=== PATIENT | male | born 1960 | race African-American/Black ===

== ENCOUNTER 2018-05-21 02:28 | Inpatient (IN) | payer BC ==
[2018-05-21] VITALS (8 sets, daily range): BP systolic 108–129; BP diastolic 69–87
[~2018-05-21] VITALS: Ht 180.3 cm; Wt 96.2 kg
[2018-05-21] MEDS ORDERED: FUROSEMIDE 40MG/4ML VIAL IV ONE (02:45)
[2018-05-21] MEDS ORDERED: CALCIUM GLUCONATE 100MG/ML 10ML VIAL IV ONE (03:30)
[2018-05-21 03:48] LABS: CHLORIDE 106 mEq/L (98-107)
[2018-05-21 03:51] LABS: BASOPHILS % 0.4 % (0.0-2.0); EOSINOPHILS % 1.6 % (0.0-5.0); HEMATOCRIT. 28.1 % (42.0-52.0); HEMOGLOBIN. 9.5 g/dL (14.0-18.0); LYMPHOCYTES % 10.8 % (20.0-50.0); MEAN CORPUSCULAR VOLUME 82.7 fL (80.0-94.0); MEAN PLATELET VOLUME 7.5 fl (7.4-10.4); MONOCYTES % 6.1 % (2.0-8.0); NEUTROPHILS % 81.1 % (40.0-76.0); PLATELET 291 x1000/uL (130-400); RED BLOOD CELL COUNT 3.39 mill/uL (4.7-6.1); RED CELL DISTRIBUTION WIDTH 17.7 % (11.6-14.6)
[2018-05-21 04:23] LABS: PARTIAL THROMBOPLASTIN TIME 21.9 sec (23.4-31.0); PROTHROMBIN TIME 10.5 sec (9.1-11.1)
[2018-05-21] MEDS ORDERED: CALCIUM GLUCONATE 1,000 MG in DEXTROSE 5% WATER 50 ML IV SCH (04:30)
[2018-05-21] MEDS ORDERED: HYDROCODONE/ACETAMINOPHEN 5/325MG TABLET PO PRN (10:00)
[2018-05-21] MEDS ORDERED: MAGNESIUM/ALUMINUM HYDROXIDE/SIMETHICONE 30ML UDC PO PRN (10:00)
[2018-05-21] MEDS ORDERED: ONDANSETRON HCL 4MG/2ML INJ IV PRN (10:00)
[2018-05-21] MEDS ORDERED: CLONIDINE 0.1MG TABLET PO PRN (10:00)
[2018-05-21] MEDS ORDERED: ACETAMINOPHEN 325MG TABLET PO PRN (10:00)
[2018-05-21] MEDS ORDERED: NA PHOS,M-B/NA PHOS,DI-BA ENEMA 118ML PR PRN (10:00)
[2018-05-21] MEDS ORDERED: IPRATROPIUM/ALBUTEROL 0.5-3(2.5)MG/3ML NEB INH PRN (10:00)
[2018-05-21] MEDS ORDERED: DIPHENHYDRAMINE 50MG/ML VIAL IV PRN (10:00)
[2018-05-21] MEDS ORDERED: ACETAMINOPHEN 650MG SUPP PR PRN (10:00)
[2018-05-21 10:43] LABS: BG BILEVEL POS AIRWAY PRESSURE ST=15/5; BG CARBOXYHEMOGLOBIN 0.3 % (0.5-1.5); BG DEOXYHEMOGLOBIN 1.2 % (0.0-5.0); BG FRACTION INSPIRED OXYGEN 60; BG HCO3 ACT 25.7 mmol/L (22.0-26.0); BG METHEMOGLOBIN 0.5 % (0.0-1.5); BG OXYGEN SATURATION 98.8 % (92.0-98.5); BG PCO2 36.4 mmHg (35.0-45.0); BG PH 7.466 (7.350-7.450); BG PO2 208.2 mmHg (75.0-100.0); BG PRESSURE SUPPORT 10; BG SAMPLE SITE LEFT RADIAL; BG TOTAL HEMOGLOBIN 9.5 g/dL (12.0-18.0); BG VENT MODE MASK - BIPAP; BG VENT RATE 20 set
[2018-05-21] MEDS ORDERED: ENOXAPARIN 30MG/0.3ML SYR SUBCUT SCH (11:00)
[2018-05-21] MEDS ORDERED: CARV6.2548 MT (11:01)
[2018-05-21] MEDS ORDERED: CHOL400T28 MT (11:01)
[2018-05-21] MEDS ORDERED: ASCO100T12 MT (11:01)
[2018-05-21] MEDS ORDERED: MINO10TA MT (11:01)
[2018-05-21] MEDS ORDERED: FERR140T MT (11:01)
[2018-05-21] MEDS ORDERED: FURO20TA4 MT (11:01)
[2018-05-21] MEDS: ASPIRIN 81MG TABLET PO SCH (11:41)
[2018-05-21 12:39] LABS: CREATINE KINASE MB FRACTION 2.4 ng/mL (0.5-3.6)
[2018-05-21 15:26] LABS: CLARITY URINE CLEAR (CLEAR); COLOR URINE YELLOW (YELLOW); KETONES URINE NEGATIVE (NEGATIVE); LEUKOCYTE ESTERASE URINE NEGATIVE (NEGATIVE); NITRITE URINE NEGATIVE (NEGATIVE); OCCULT BLOOD URINE NEGATIVE (NEGATIVE); PROTEIN URINE NEGATIVE (NEGATIVE); SPECIFIC GRAVITY URINE 1.008 (1.005-1.030); UROBILINOGEN URINE 0.2 E.U./dL (0.2-1.0)
[2018-05-21 15:34] LABS: CANNABINOID URINE SCREEN NEGATIVE (NEGATIVE); PHENCYCLIDINE URINE SCREEN NEGATIVE (NEGATIVE)
[2018-05-21 15:35] LABS: *BARBITURATES SCREEN URINE NEGATIVE (NEGATIVE)
[2018-05-21 15:36] LABS: *COCAINE SCREEN URINE NEGATIVE (NEGATIVE)
[2018-05-21 15:37] LABS: METHADONE URINE SCREEN NEGATIVE (NEGATIVE)
[2018-05-21 15:39] LABS: OPIATES URINE SCREEN NEGATIVE (NEGATIVE)
[2018-05-21 15:41] LABS: *AMPHETAMINES SCREEN URINE NEGATIVE (NEGATIVE); *BENZODIAZEPINES SCREEN URINE NEGATIVE (NEGATIVE)
[2018-05-21 18:07] LABS: BG CARBOXYHEMOGLOBIN 0.3 % (0.5-1.5); BG DEOXYHEMOGLOBIN 12.6 % (0.0-5.0); BG HCO3 ACT 28.1 mmol/L (22.0-26.0); BG METHEMOGLOBIN 0.5 % (0.0-1.5); BG OXYGEN SATURATION 87.3 % (92.0-98.5); BG OXYHEMOGLOBIN 86.6 % (94.0-97.0); BG PCO2 40.2 mmHg (35.0-45.0); BG PH 7.462 (7.350-7.450); BG SAMPLE SITE RIGHT RADIAL; BG TOTAL HEMOGLOBIN 9.6 g/dL (12.0-18.0); BG VENT MODE ROOM AIR
[2018-05-21] MEDS: FUROSEMIDE 40MG/4ML VIAL IVP SCH (18:18)
[2018-05-21] MEDS: CARVEDILOL 3.125 MG TABLET PO SCH (21:41)
[2018-05-22] VITALS (13 sets, daily range): BP systolic 103–126; BP diastolic 67–92
[2018-05-22 08:38] LABS: BASOPHILS % 0.6 % (0.0-2.0); EOSINOPHILS % 1.2 % (0.0-5.0); HEMOGLOBIN. 9.5 g/dL (14.0-18.0); LYMPHOCYTES % 16.1 % (20.0-50.0); MEAN CORPUSCULAR VOLUME 82.6 fL (80.0-94.0); MEAN PLATELET VOLUME 7.9 fl (7.4-10.4); MONOCYTES % 7.2 % (2.0-8.0); NEUTROPHILS % 74.9 % (40.0-76.0); PLATELET 279 x1000/uL (130-400); RED BLOOD CELL COUNT 3.39 mill/uL (4.7-6.1)
[2018-05-22] MEDS: FUROSEMIDE 40MG/4ML VIAL IVP SCH ×2 (08:58→16:46)
[2018-05-22] MEDS: ASPIRIN 81MG TABLET PO SCH (08:58)
[2018-05-22] MEDS: CARVEDILOL 3.125 MG TABLET PO SCH ×2 (09:00→20:36)
[2018-05-22] MEDS ORDERED: FUROSEMIDE 40MG/4ML VIAL IVP SCH (09:00)
[2018-05-22] MEDS: ENOXAPARIN 100MG/ML SYR SUBCUT SCH (09:01)
[2018-05-22 09:15] LABS: CHLORIDE 107 mEq/L (98-107)
[2018-05-22 09:37] LABS: LDL CHOLESTEROL 114 mg/dL (5-100)
[2018-05-22 09:38] LABS: HDL CHOLESTEROL 48 mg/dL (40-59)
[2018-05-22 09:39] LABS: T4 FREE 0.99 ng/dL (0.76-1.46)
[2018-05-23] VITALS (9 sets, daily range): BP systolic 103–135; BP diastolic 60–90
[2018-05-23 07:48] LABS: BASOPHILS % 0.6 % (0.0-2.0); EOSINOPHILS % 1.4 % (0.0-5.0); HEMATOCRIT. 30.4 % (42.0-52.0); HEMOGLOBIN. 10.2 g/dL (14.0-18.0); LYMPHOCYTES % 15.8 % (20.0-50.0); MEAN CORPUSCULAR HEMOGLOBIN 27.8 pg (28.0-32.0); MEAN PLATELET VOLUME 7.9 fl (7.4-10.4); MONOCYTES % 9.1 % (2.0-8.0); NEUTROPHILS % 73.1 % (40.0-76.0); PLATELET 298 x1000/uL (130-400); RED BLOOD CELL COUNT 3.66 mill/uL (4.7-6.1)
[2018-05-23 08:25] LABS: PHOSPHORUS 3.7 mg/dL (2.5-4.9)
[2018-05-23] MEDS: FUROSEMIDE 40MG/4ML VIAL IVP SCH ×2 (08:40→16:48)
[2018-05-23] MEDS: ASPIRIN 81MG TABLET PO SCH (08:41)
[2018-05-23] MEDS: CARVEDILOL 3.125 MG TABLET PO SCH (08:41)
[2018-05-23] MEDS: ENOXAPARIN 100MG/ML SYR SUBCUT SCH (08:44)
[2018-05-23] MEDS ORDERED: LISINOPRIL 2.5MG TABLET PO SCH (09:00)
== END 2018-05-23 18:50 | disposition home or self-care (01) | DRG 291 ==
LOC: ER 02:28 → 5EST 04:58 → EDBEDREQSVC 05:00 → EDBEDREQ 05:00 → EDBEDREQTM 05:00 → ENRESERV 07:19
PROVIDERS: ADMIT Internal Medicine; ATTEND Internal Medicine
PROC: 5A09357 Assistance with Respiratory Ventilation, Less than 24 Consecutive Hours, Continuous Positive Airway Pressure (ICD-10-PCS; principal; 2018-05-21)
DX: I13.0 Hypertensive heart and chronic kidney disease with heart failure and stage 1 through stage 4 chronic kidney disease, or unspecified chronic kidney disease (principal); I50.43 Acute on chronic combined systolic (congestive) and diastolic (congestive) heart failure; J96.21 Acute and chronic respiratory failure with hypoxia; N17.9 Acute kidney failure, unspecified; I31.3 Pericardial effusion (noninflammatory); D64.9 Anemia, unspecified; E16.2 Hypoglycemia, unspecified; G47.30 Sleep apnea, unspecified; I34.0 Nonrheumatic mitral (valve) insufficiency; I44.7 Left bundle-branch block, unspecified; R73.9 Hyperglycemia, unspecified; N18.9 Chronic kidney disease, unspecified; N40.0 Benign prostatic hyperplasia without lower urinary tract symptoms; R79.1 Abnormal coagulation profile; Z90.49 Acquired absence of other specified parts of digestive tract
CPT/HCPCS: 36415; 36600; 71045; 74176; 76770; 78582; 80048; 80053; 80061; 80305; 81003; 82375; 82550; 82553; 82805; 82962; 83036; 83735; 83880; 84100; 84153; 84439; 84443; 84484; 85025; 85379; 85610; 85730; 87070; 87077; 87186; 87205; 93005; 93306; 93970; 94660; 96365; 96375; 99291; A9558; J0610; J1650; J1940; J7060; G0103